=== PATIENT | female | born 1955 | race Caucasian/White ===

== ENCOUNTER → 2023-03-25 | Outpatient (CLI) | payer MEDICARE ==
--- NOTE | 2023-03-25 12:26 | CA ---
Transthoracic Echo Report Name: Muriel Roberts Age: 68 Gender: F : 1955 Exam Date: 03/25/2023 11:37 Exam Location: [facility] Ht (in): 61 Wt (lb): 190 Ordering Physician: Kwaku Colunga DO Attending/Referring Phys: Shanice Gooden PENDING SALE TO [facility] Video Journalist Jamee Portillo RDCS Procedure CPT: Indications: R00.1 bradycardia Cardiac Hx: Technical Quality: Contrast 1: Total Dose (mL): Contrast 2: Total Dose (mL): MEASUREMENTS (Male / Female) Normal Values 2D ECHO LV Diastolic Diameter PLAX 4.4 cm 4.2 - 5.9 / 3.9 - 5.3 cm LV Systolic Diameter PLAX 3.0 cm IVS Diastolic Thickness 1.1 cm 0.6 - 1.0 / 0.6 - 0.9 cm LVPW Diastolic Thickness 1.1 cm 0.6 - 1.0 / 0.6 - 0.9 cm LV Relative Wall Thickness 0.5 RV Internal Dim ED PLAX 3.2 cm LA Systolic Diameter LX 3.4 cm 3.0 - 4.0 / 2.7 - 3.8 cm LV Diastolic Volume MOD 4C 88.1 cm??? LV Systolic Volume MOD 4C 41.6 cm??? LV Ejection Fraction MOD 4C 52.8 % LV Cardiac Index MOD 4C 1441.5 cm???/min???m??? LV Diastolic Length 4C 7.8 cm LV Systolic Length 4C 6.0 cm LV Diastolic Volume MOD 2C 77.3 cm??? LV Systolic Volume MOD 2C 27.6 cm??? LV Ejection Fraction MOD 2C 64.4 % LV Cardiac Index MOD 2C 1542.0 cm???/min???m??? LV Diastolic Length 2C 7.5 cm LV Systolic Length 2C 6.0 cm M-MODE Aortic Root Diameter MM 3.5 cm LA Systolic Diameter MM 3.5 cm LA Ao Ratio MM 1.0 DOPPLER AV Peak Velocity 129.3 cm/s AV Peak Gradient 6.7 mmHg Mitral E Point Velocity 67.0 cm/s Mitral A Point Velocity 91.2 cm/s Mitral E to A Ratio 0.7 MV Deceleration Time 254.6 ms MV E' Velocity 5.6 cm/s Mitral E to MV E' Ratio 11.9 TR Peak Velocity 198.3 cm/s TR Peak Gradient 15.7 mmHg Right Ventricular Systolic Press 25.7 mmHg FINDINGS Left Ventricle Left ventricular ejection fraction is estimated at 55-60 %. Left ventricular cavity size normal. Mildly increased septal wall thickness. Mildly increased posterior wall thickness. Right Ventricle Normal right ventricular size. Right ventricular systolic pressure within normal limits. Right Atrium Normal right atrial size. Left Atrium Normal left atrial size. Mitral Valve Structurally normal mitral valve. No mitral stenosis, regurgitation or prolapse. Aortic Valve Trileaflet aortic valve. No aortic valve stenosis or regurgitation. Tricuspid Valve Structurally normal tricuspid valve. Trace to mild tricuspid regurgitation. Pulmonic Valve Pulmonic valve not well visualized. No pulmonic regurgitation. Pericardium No pericardial effusion. Aorta Normal size aortic root and proximal ascending aorta. CONCLUSIONS Normal LV function Previewed by: Dr. Mamadou Saravia MD (Electronically Signed) Final Date: 25 March 2023 12:25
== END | disposition home or self-care (01) ==
LOC: RADECHMAIN 11:25
PROVIDERS: ATTEND Family Medicine
DX: R00.1 Bradycardia, unspecified (principal)
CPT/HCPCS: 93306

== ENCOUNTER → 2023-03-26 | Outpatient (CLI) | payer MEDICARE ==
[2023-03-26 09:48] VITALS: BP 134/86; PULSE 86; RESP 15; TEMP 98.6
--- NOTE | 2023-03-26 12:59 | P.PAINPG ---
PQRS Measure Charge Sheet Comment: HISTORY OF PRESENT ILLNESS: A 68 yr old female w at side as a referral from Shanice RODRIGUEZ presents today w severe and chronic LBP secondary to DDD, spondylosis and facet arthropathy without myelopathy for evaluation. Pt states she underwent a BL RFA of the L4-L5, L5-S1 in Sep 2021 where she experienced 100% pain relief for 14 mo s/p procedure. Pt states pain level is provoked at 8/10 in intensity, constant, localized in the center lumbar spine, predominantly axial, stabbing in character w occasional shooting pain towards the BL hips, groin and LEs. Pain is provoked by standing for periods > 10 min. 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 Pain is alleviated by injections, physician guided home exercises daily since Sep 2021, medications, topical, repositioning and rest. Oswestry axial pain score at 16. PMH: OA, GERD, HTN, Hyperlipidemia PSH: BL Knee Replacement, BL CTR, Uterine Polypectomy SH: Hx of tobacco use (Quit 1975), No ETOH abuse, No illicit drug use. and has children. Lives w Spouse. Retired. FH: Bro- DM. Bro- Brain Tumor. Mo- MT. Fa- AAA. All: See list Meds: See list REVIEW OF ORGAN SYSTEMS: CONSTITUTIONAL: No fevers or chills. No recent weight loss. NEUROLOGICAL: + numbness and tingling along the distal extremities. No seizure disorders or headaches. MUSCULOSKELETAL: + pain PSYCHIATRIC: Denies current depression or suicidal thoughts. Physical Examinations : Constitutional : Cooperative , not in acute distress . Neurologic : Cranial nerve II to XII intact. No focal neurological deficits. Psychiatric : alert & oriented x 3. Matching mood & appropriate affect. Judgment & insight intact. Musculoskeletal : Cervical Spine Motor strength in the deltoid and biceps: Normal right side. Normal Left side Motor strength biceps and the wrist extensors: Normal right side . Normal left side Motor strength in the triceps muscle: Normal right side. Normal left side Deep tendon reflexes: Normal at the biceps. Normal at Brachioradialis. Normal at triceps Vertebral body tenderness to deep palpation over Cervical facet loading test: positive bilaterally Spurling test: positive bilaterally Neck distraction test: positive bilaterally Nathanael sign: positive bilaterally Lumbar spine Motor strength lower extremities ,thigh and legs 5/5 Right side , 5/5 Left side Deep tendon reflexes : Normal Knee Jerk. Normal Ankle Jerk Vertebral body tenderness over Kahn Test positive Lumbar facet Loading Test: positive Right / positive Left over L4-L5, L5-S1 Range of motion of the lumbar spine Flexion 30 degrees, extension 10 degrees Straight Leg Raise test: Left/ Right positive at degrees Néstor test: positive right / positive left. Severe tenderness over the Sacroiliac joint on the Right / Left sides Gaenslen test: positive bilaterally Seated flexion test: positive bilaterally. Sacral spine : Severe tenderness over the Sacroiliac joint: right side / left side Range of motion: Flexion of the lumbar spine <60 degrees Range of motion: Extension of the lumbar spine <20 degrees Gaenslen's Test positive Néstor test: positive right side / left side Thigh Thrust Test Sacral Thrust Test Imaging: Obtaining records from Dr Nadeem Butler in [place], [place] Assessment/ Plan : Lumbar DDD Recommendation of repeat BL RFA L4-L5, L5-S1. Pt exhibited optimal pain relief w prior BL RFA of the lumbar spine from Sep 2021. Risks, benefits of procedure discussed and patient verbalized understanding. Admits to anti- coagulant use or medical history of diabetes. Protocol for discontinuation/ continuation of medications simone procedure discussed. Minimal anesthesia provided, if clinically indicated, consisting of Versed and Fentanyl. All questions answered. I have spent greater than 30 minutes on patient care today. Dr Kruger was available by phone for the evaluation of this patient. The time was used to review the medical records including relevant urine studies and Prescription history (MAPs), review of the available imaging, evaluation and examination of the patient, coordination of care with the medical staff and if applicable referring physicians, as well as creation of the medical record Controlled Substance Measures - Controlled Substance Measures Is patient prescribed a controlled substance at discharge?: No
== END ==
LOC: PNWHC3 08:58
PROVIDERS: ATTEND Specialist
DX: M51.37 Other intervertebral disc degeneration, lumbosacral region (principal); M19.90 Unspecified osteoarthritis, unspecified site; K21.9 Gastro-esophageal reflux disease without esophagitis; I10 Essential (primary) hypertension; E78.5 Hyperlipidemia, unspecified; Z87.891 Personal history of nicotine dependence; Z88.0 Allergy status to penicillin; Z88.5 Allergy status to narcotic agent
CPT/HCPCS: 99212

== ENCOUNTER → 2023-04-08 | Outpatient (CLI) | payer MEDICARE ==
--- NOTE | 2023-04-08 12:39 | CA ---
Exercise Stress Test Report Name: Muriel Roberts Exam Date: 04/08/2023 08:19 Exam Location: [facility] Ht (in): 61 Wt (lb): 190 BSA: 1.85 Ordering Phys: Kwaku Colunga DO Referring Phys: Shanice Gooden Technologist: Ed Fisher Age: 68 Gender: F : 1955 Procedure CPT: Indications: R00.2 palpitations ICD-10 Codes: Patient History: Medications: THYROXINE, CLARITIN, FLONASE Meds past 24 hrs: Pretest Chest Pain: STRESS TEST Hank Protocol Exercise Duration (min:sec): 09:[address] Depressions (mm): Angina Score: Vasquez Score: Resting HR (bpm): 90 Peak HR (bpm): 152 Resting BP (mmHg): 131 / 82 Peak BP (mmHg): 184 / 82 MPHR: 151 Target HR: 128 % MPHR: 101 METS: 10.3 Total Dose: Peak Dose: Atropine: Double Product: 38246 BP Response: Stress Termination: Reached target heart rate Stress Symptoms: No chest pain or symptoms Stress Summary: ECG ANALYSIS Resting ECG: Stress ECG: CONCLUSIONS Good exercise tolerance Normal EKG in response to exercise Dr. Charly Diaz MD (Electronically Signed) Final Date: 08 April 2023 12:39
== END | disposition home or self-care (01) ==
LOC: RADECHMAIN 07:43
PROVIDERS: ATTEND Family Medicine
DX: R00.2 Palpitations (principal); R00.1 Bradycardia, unspecified
CPT/HCPCS: 93017; 93270

== ENCOUNTER 2023-06-03 18:50 | Outpatient (CLI) | payer MEDICARE ==
--- NOTE | 2023-06-05 13:51 | P.PCN ---
Description of Procedure: POLYSOMNOGRAPHY REPORT PROCEDURE(S)/DATE(S): Polysomnography 06/03/2023 CLINICAL: Patient has been seen in the sleep center for evaluation of obstructive sleep apnea-hypopnea syndrome. Please see my consultation. Sleep study has been done for evaluation of patient breathing during the sleep. PROCEDURE: The standard montage for clinical polysomnography included the electroencephalogram, the electrooculogram, the mentalis surface electromyography and Lead II cardiography. The respiratory battery consisted of measurements of nasal/buccal air flow, pressure transducer measurements from nose, thoracic and/or abdominal effort and intercostal surface electromyography. Video monitoring has been done to check for any parasomnia events. Nocturnal oxyhemoglobin saturations were obtained by finger oximetry. Step-jonas titration with positive airway pressure was utilized to control the respiratory events, if necessary. RESULTS: During the diagnostic sleep study sleep efficiency was decreased to 79.8%. Latency to sleep onset was prolonged to 31.0 min. Sleep architecture showed stage NI increased to 18.4%, Delta sleep was absent 0%, REM sleep was decreased to 12.7%. Respiratory channel showed 0 obstructive apneas, 0 mixed apneas, 0 central apneas, 2 hypopneas with lowest oxygen level 85%. Total atrial oxygen was below or 89% for 1 minute and 36 seconds. total apnea hypopnea index was 0.4. Heart rate was in the range between 64 and 75, average 70. EMG showed 12.1 periodic limb movements per hour with 0 micro-arousals per hour. IMPRESSIONS: 1. No significant respiratory abnormalities have been documented during the sleep study . 2. Very minimal periodic limb movements have been documented without related microarousals. Please see other impressions from consultation PLAN: 1. I will see patient for follow-up visit to explain results of the sleep study and recommendations. 2. Losing weight program. 3. Sleep hygiene with regular time in bed for at least 7-1/2 hours. 4. No driving if feeling sleepiness. 5. Please check iron profile including ferritin level. Low level of iron may increase the risk for periodic limb movements. Thank you very much for allowing me to participate in the management of your patient. Sincerely, Miguel Ng MD, PhD, FAASM. Diplomat of [place] [employer], Sleep Medicine Board by [place] [employer] [facility] [place]
== END 2023-06-04 05:05 | disposition home or self-care (01) ==
LOC: 3 N SLEEP 18:50
PROVIDERS: ATTEND Internal Medicine
DX: G47.33 Obstructive sleep apnea (adult) (pediatric) (principal); G47.61 Periodic limb movement disorder; Z88.0 Allergy status to penicillin; Z88.5 Allergy status to narcotic agent
CPT/HCPCS: 95810

== ENCOUNTER → 2023-06-26 | Outpatient (CLI) | payer MEDICARE ==
[2023-06-26 13:53] VITALS: BP 118/78; PULSE 70; RESP 16; TEMP 98.3
--- NOTE | 2023-06-26 14:15 | P.PN ---
Subjective DATE: 06/26/2023 FOLLOW UP VISIT. Patient returned to sleep center for follow-up visit discussed results of sleep test and following plan. I discussed results of sleep study with patient in details. No significant respiratory abnormalities have been documented. Very mild periodic limb movements have been documented without any microarousal's. Patient had prolonged sleep latency and some decreasing of sleep efficiency, but patient did not feel comfortable with electrodes and had some pain in his body during the test. . Imperial sleepiness scale is 7, which is in normal range. MEDICATIONS:1. Levothyroxine 150 mcg once a day 2. Omeprazole 20 mg once a day 3. Rosuvastatin 5 mg once a day 4. Trazodone 150 mg once a day During physical exam: GENERAL: A pleasant patient without any distress. VITAL SIGNS: Please see below. HEENT: [place]. NECK: Supple. No JVD. LUNGS: Clear to percussion and to auscultation. Good air exchange. No wheezing or rhonchi. HEART: S1, S2 regular. ABDOMEN: Soft and nontender. EXTREMITIES: No clubbing or cyanosis. TUTORING ASSISTANT: Awake, alert, and oriented x3. No focal deficit. Impressions: 1. No significant respiratory abnormalities given documented during the sleep study 2. Very mild periodic limb movements have been documented, normal range by 2 days criteria without any significant amount of micro arousals. 3. History of arthritis. 4. Hypothyroidism. 5. Acid reflux. 6. Hyperlipidemia. 7. Status post bilateral knee replacement. Plan: 1. Sleep hygiene with regular time in bed for at least 8 hours. 2. Precautions related to driving. No driving if feel any sleepiness. Patient is aware about civil and criminal liability for unsafe driving, promised to follow recommendations. 3. Follow up visit in 1 year if patient has any problems. Thank you very much for allowing me to participate in the management of your patient. Miguel Ng MD, PhD, FAASM. Diplomat of [place] [employer], Sleep Medicine Board by [place] [employer] Instructor of [facility] [place] Objective - Vital Signs Vital signs: Vital Signs Temp 98.3 F 06/26/23 13:50 Pulse 70 06/26/23 13:50 Resp 16 06/26/23 13:50 BP 118/78 06/26/23 13:50 Pulse Ox 97 06/26/23 13:50 FiO2
== END ==
LOC: 3 N SLEEP 13:33
PROVIDERS: ATTEND Internal Medicine
DX: G47.61 Periodic limb movement disorder (principal); M19.90 Unspecified osteoarthritis, unspecified site; E03.9 Hypothyroidism, unspecified; E78.5 Hyperlipidemia, unspecified; K21.9 Gastro-esophageal reflux disease without esophagitis; Z79.890 Hormone replacement therapy; Z79.899 Other long term (current) drug therapy; Z96.653 Presence of artificial knee joint, bilateral; Z88.0 Allergy status to penicillin; Z88.8 Allergy status to other drugs, medicaments and biological substances
CPT/HCPCS: 99212

== ENCOUNTER → 2023-07-15 | Outpatient (CLI) | payer MEDICARE ==
--- NOTE | 2023-07-17 08:51 | MM ---
Reason for Exam: Screening (asymptomatic). Last screening mammogram was performed 12 month(s) ago. Patient History: Menarche at age 10. First Full-Term at age 21. Postmenopausal. Mother had breast cancer. Risk Values: Farrah 5 year model risk: 3.6%. NCI Lifetime model risk: 10.9%. Prior Study Comparison: 10/10/2020 Bilateral Screening Mammogram, [facility]. 06/05/2021 Bilateral Diagnostic Mammogram, [facility]. 06/29/2022 Bilateral Screening Mammogram, [facility]. Tissue Density: There are scattered areas of fibroglandular density. Findings: Analyzed By CAD. Right breast: There is no suspicious group of microcalcifications or new suspicious mass. Left breast: There is no suspicious group of microcalcifications or new suspicious mass. Overall Assessment: Negative, BI-RAD 1 Management: Screening Mammogram of both breasts in [address] [facility] will attempt to contact patient to return for supplemental views and ultrasound if indicated. Patient should continue monthly self-breast exams. A clinical breast exam by your physician is recommended on an annual basis. This exam should not preclude additional follow-up of suspicious palpable abnormalities. Note on Farrah scores and lifetime risk: 1. A Farrah score greater than 3% is considered moderate risk. If this is the case, consider specialist referral to assess eligibility for a risk reducing agent. 2. If overall lifetime risk for the development of breast cancer is 20% or higher, the patient may qualify for future screening with alternating mammogram and breast MRI. Electronically signed and approved by: Rivera Pemberton DO
== END | disposition home or self-care (01) ==
LOC: RADMAMWWP 10:50
PROVIDERS: ATTEND Family Medicine
DX: Z12.31 Encounter for screening mammogram for malignant neoplasm of breast (principal); Z78.0 Asymptomatic menopausal state; Z80.3 Family history of malignant neoplasm of breast
CPT/HCPCS: 77063; 77067

== ENCOUNTER → 2024-03-26 | Outpatient (CLI) | payer MEDICARE ==
[2024-03-26 09:25] LABS: Blood Urea Nitrogen 14 mg/dL (7-17)
[2024-03-26 09:26] LABS: African American GFR (CKD) 87 (>60 ml/min/1.73 sqM); Non-African American GFR(CKD) 75 (>60 ml/min/1.73 sqM)
--- NOTE | 2024-03-26 11:08 | CT ---
EXAMINATION TYPE: CT abdomen pelvis w con DATE OF EXAM: 03/26/2024 HISTORY: RLQ pain, nausea CT DLP: 1719.7mGycm Automated Exposure Control for Dose Reduction was Utilized. CONTRAST: CT scan of the abdomen and pelvis is performed with oral and with IV Contrast, patient injected with 100 mL of Isovue 300. COMPARISON: None FINDINGS: LUNG BASES: No significant abnormality is appreciated. LIVER/GB: No significant abnormality is appreciated. PANCREAS: No significant abnormality is seen. SPLEEN: No significant abnormality is seen. ADRENALS: No significant abnormality is seen. KIDNEYS: Symmetric cortical medullary uptake and excretion with prominent but simple appearing parape lvic cyst centrally in both kidneys. BOWEL: Oral contrast extends to level of the mid transverse colon. There is no abnormal small or larg e bowel dilatation is seen. A few scattered colonic diverticula are present. No CT evidence for acute diverticulitis. There is wondering cecum into the anterior right midabdomen. Terminal ileum appears within normal limits axial image 47 . Appendix is suspected surgically absent as no normal or abnorma l appendix is identified. No inflammatory change at base of cecum is seen. Focal wall thickening in t he right colon image 43 is nonspecific finding and should be correlated with colonoscopy if has not b een recently performed to rule out malignancy. UTERUS/ADNEXA: Symmetric small size ovaries correlates with patient's postmenopausal age. LYMPH NODES: No greater than 1cm abdominal or pelvic lymph nodes are appreciated. OSSEOUS STRUCTURES: Slight grade 1 anterolisthesis L4 on L5. Multilevel spurring and disc space narro wing in the thoracic spine. OTHER: No significant additional abnormality is seen. IMPRESSION: No significant finding is seen to account for patient's clinical symptoms of right lower quadrant pain and nausea. No bowel obstruction or CT evidence to suggest acute appendicitis. [facility], , 03/26/2024 11:06 AM
== END | disposition home or self-care (01) ==
LOC: RADCTMAIN 08:35
PROVIDERS: ATTEND Family Medicine
DX: R10.823 Right lower quadrant rebound abdominal tenderness (principal)
CPT/HCPCS: 82565; 84520; 74177; 36415; Q9967

== ENCOUNTER 2024-06-12 09:58 | Day surgery (SDC) | payer MEDICARE ==
[2024-06-10 15:39] VITALS: BMI 38.7
[2024-06-12] MEDS: IV FLUID CONTINUATION 1,000 ML IV ONE (10:22)
[2024-06-12 10:29] VITALS: TEMP 98.3
[2024-06-12] MEDS: LACTATED RINGERS 1,000 ML IV SCH (10:37)
[2024-06-12] MEDS ORDERED: PROPOFOL 10 MG/ML 20 ML VIAL IV ONE (11:01)
[2024-06-12] MEDS ORDERED: LIDOCAINE 1% INJ 10MG/ML (20 ML MDV) ONE (11:01)
--- NOTE | 2024-06-12 11:16 | P.PCN ---
Date of Procedure: 06/12/24 Procedure(s) Performed: BRIEF HISTORY: Patient is a 69-year-old pleasant white female scheduled for an elective colonoscopy as a part of evaluation for abnormal CAT scan of the abdomen that showed thickening of the cecum rule out lesion. PROCEDURE PERFORMED: Colonoscopy with snare polypectomy. PREOPERATIVE DIAGNOSIS: Abnormal CAT scan of the abdomen. IV sedation per Anesthesia. PROCEDURE: After informed consent was obtained, the patient, was brought into the endoscopy unit. IV sedation was administered by Anesthesia under continuous monitoring. Digital rectal examination was normal. Initially the Olympus CF-160 flexible video colonoscope was then inserted in the rectum, gradually advanced into the cecum without any difficulty. Careful examination was performed as the scope was gradually being withdrawn. Ileocecal valve and the appendiceal orifice were visualized and appeared normal. Prep was excellent. Mucosa of the cecum appeared normal. In the hepatic flexure there was a 5 mm sessile polyp removed by cold snare polypectomy. Rest of the, ascending colon, transverse colon, descending colon, sigmoid colon, and rectum appeared normal. Scattered sigmoid diverticulosis. Retroflexion was performed in the rectum and no lesions were seen. The patient tolerated the procedure well. IMPRESSION: 5 mm hepatic flexure polyp status post cold snare polypectomy Scattered sigmoid diverticulosis Cecum appeared normal RECOMMENDATIONS: Findings of this examination were discussed with the patient as well as her family. She was advised to follow-up with the biopsy results. If the biopsy is normal she can have repeat colonoscopy 5 years..
[2024-06-12 11:43] VITALS: BP 131/76; PULSE 60; RESP 16
== END 2024-06-12 12:06 | disposition home or self-care (01) ==
LOC: ORWHC2ENDO 09:58
PROVIDERS: ATTEND Internal Medicine Gastroenterology
DX: D12.3 Benign neoplasm of transverse colon (principal); K57.30 Diverticulosis of large intestine without perforation or abscess without bleeding; E03.9 Hypothyroidism, unspecified; K21.9 Gastro-esophageal reflux disease without esophagitis; M06.9 Rheumatoid arthritis, unspecified; J40 Bronchitis, not specified as acute or chronic; Z88.5 Allergy status to narcotic agent; Z88.0 Allergy status to penicillin; Z88.8 Allergy status to other drugs, medicaments and biological substances; Z79.890 Hormone replacement therapy; Z79.899 Other long term (current) drug therapy; Z88.6 Allergy status to analgesic agent
CPT/HCPCS: 45385; J2003; J2704; 88305

== ENCOUNTER → 2024-07-20 | Outpatient (CLI) | payer MEDICARE ==
--- NOTE | 2024-07-20 11:51 | MM ---
Reason for Exam: Screening (asymptomatic). Last mammogram was performed 1 year(s) and 1 month(s) ago. Patient History: Menarche at age 10. First Full-Term at age 21. Postmenopausal. Patient has history of breast feeding. Patient used Hormonal Contraceptives for 1 year. Mother had breast cancer. Risk Values: Farrah 5 year model risk: 3.6%. NCI Lifetime model risk: 10.4%. Prior Study Comparison: 06/05/2021 Bilateral Diagnostic Mammogram, [facility]. 06/29/2022 Bilateral Screening Mammogram, [facility]. 07/15/2023 Bilateral MG 3D screening mammo w/cad, [facility]. Tissue Density: The breasts are heterogeneously dense, which may obscure small masses. Findings: Analyzed By CAD. Right breast: There is no suspicious group of microcalcifications or new suspicious mass. Left breast: There is no suspicious group of microcalcifications or new suspicious mass. Overall Assessment: Negative, BI-RAD 1 Management: Screening Mammogram of both breasts in [address] [facility] will attempt to contact patient to return for supplemental views and ultrasound if indicated. Patient should continue monthly self-breast exams. A clinical breast exam by your physician is recommended on an annual basis. This exam should not preclude additional follow-up of suspicious palpable abnormalities. Note on Farrah scores and lifetime risk: 1. A Farrah score greater than 3% is considered moderate risk. If this is the case, consider specialist referral to assess eligibility for a risk reducing agent. 2. If overall lifetime risk for the development of breast cancer is 20% or higher, the patient may qualify for future screening with alternating mammogram and breast MRI. [facility], , 07/20/2024 11:48 AM. Electronically signed and approved by: Rivera Pemberton DO
== END | disposition home or self-care (01) ==
LOC: RADMAMWWP 11:04
PROVIDERS: ATTEND Family Medicine
DX: Z12.31 Encounter for screening mammogram for malignant neoplasm of breast (principal); R92.333 Mammographic heterogeneous density, bilateral breasts; Z92.0 Personal history of contraception; Z80.3 Family history of malignant neoplasm of breast; Z78.0 Asymptomatic menopausal state
CPT/HCPCS: 77063; 77067

== ENCOUNTER → 2024-08-28 | Outpatient (CLI) | payer MEDICARE ==
[2024-08-28 14:23] VITALS: BP 125/86; PULSE 71; RESP 17; TEMP 97.9
--- NOTE | 2024-08-28 14:35 | P.GSCN ---
History of Present Illness Consult date: 08/28/24 Reason for Consult: High risk breast cancer Requesting physician: Kwaku Colunga History of present illness: Muriel is a 69-year-old female seen in consultation for Dr. Colunga regarding an elevated Farrah 5-year risk to 3.6%. She underwent a bilateral mammogram in 07 20 24 which was personally reviewed and interpreted and was noted to be a BI-RADS 1. She is not complaining of any lumps masses or nodules of concern in either breast. She is not complaining of any nipple discharge or skin changes. She is not complaining of any recent trauma or infection in the breast. She has never had any surgery on her breast. Farrah risk evaluation 5-year: 3.6% Lifetime risk 10.4% Caffeine: 1 cup coffee/day nicotine: none, stopped in 1975, used to smoke 2-3 cigarettes/day chocolate: several times a week BCP: Less than 1 year in remote past Hormones: none Family History: mother: breast cancer about 70, of heart attack 4 years later brother: melanoma brain cancer brother: stomach cancer Hormonal History: menarche: 11 , breast fed: yes, age at first : 21 menopause: 51 Surgical history: Bilateral knee replacement Bilateral carpal tunnel surgery Uterine surgery to remove polyp rectal polys removed no cancer Medical history: High cholesterol Radioiodine to ablate thyroid and she takes Synthroid at this time Social history: Nicotine: Negative Alcohol: Occasional Drugs: Negative Review of Systems - Constitutional Denies fever, Denies weight loss - EENT Eyes: denies blurred vision Ears: deny: decreased hearing, tinnitus Ears, nose, mouth and throat: Denies dysphagia - Breasts bilateral: as per HPI - Cardiovascular Denies chest pain, Denies shortness of breath - Respiratory Reports cough - Gastrointestinal Reports as per HPI, Reports constipation - Genitourinary Genitourinary: Denies dysuria, Denies hematuria Menstruation: Reports postmenopausal - Musculoskeletal Musculoskeleta Comment(s): arthritis - Integumentary Denies rash, Denies unusual bruising - Neurological Denies headaches, Denies syncope - Psychiatric Reports as per HPI - Endocrine Endocrine Comment(s): hypothyroid Reports as per HPI, Reports fatigue - Hematologic/Lymphatic Reports easy bleeding - Allergic/Immunologic Reports as per HPI, Reports seasonal allergies Past Medical History Past Medical History: GERD/Reflux, Hyperlipidemia, Osteoarthritis (OA), Respiratory Disorder, Rheumatoid Arthritis (RA), Thyroid Disorder Additional Past Medical History / Comment(s): Hx one instance of Tachycardia. Hx bronchitis multiple times. History of Any Multi-Drug Resistant Organisms: None Reported Past Surgical History: Joint Replacement, Orthopedic Surgery Additional Past Surgical History / Comment(s): Carpal tunnel surgery, bilateral knee replacements, polyp removd from uterus, colonoscopy. Past Anesthesia/Blood Transfusion Reactions: No Reported Reaction, Motion Sickness Smoking Status: Former smoker - Past Family History Mother Family Medical History: Congestive Heart Failure (CHF), GERD/Reflux, Hypertension, Rheumatoid Arthritis (RA) Medications and Allergies Home Medications Medication Instructions Recorded Confirmed Type Desloratadine [Clarinex] 10 mg PO DAILY 06/10/24 06/12/24 History Fluticasone Nasal [place] [Flonase 1 spray EA NOSTRIL DAILY 06/10/24 06/12/24 History Nasal [place]] Ibuprofen [Advil] 800 mg PO Q8HR PRN 06/10/24 06/12/24 History Levothyroxine Sodium 75 mcg PO [id number] 06/10/24 06/12/24 History Levothyroxine Sodium 150 mcg PO SUTUTH 06/10/24 06/12/24 History Multivitamins, Thera [Multivitamin 1 tab PO DAILY 06/10/24 06/12/24 History (formulary)] [place] 3,6,9 1 tab PO DAILY 06/10/24 06/12/24 History Pantoprazole Sodium [Protonix] 20 mg PO DAILY 06/10/24 06/12/24 History Rosuvastatin Calcium 5 mg PO DAILY 06/10/24 06/12/24 History Ubidecarenone [Co Q-10] 100 mg PO DAILY 06/10/24 06/12/24 History Vitamin B Complex 1 each PO DAILY 06/10/24 06/12/24 History traZODone HCL [Trazodone HCl] 150 mg PO HS PRN 06/10/24 06/12/24 History Allergies Allergy/AdvReac Type Severity Reaction Status Date / Time amoxicillin Allergy Swelling Verified 06/12/24 10:29 celecoxib [From Celebrex] Allergy Vomiting Verified 06/12/24 10:29 Opioids - Morphine Analogues Allergy Nausea & Verified 06/12/24 10:29 Vomiting Opioids-Meperidine and Allergy Nausea & Verified 06/12/24 10:29 Related Vomiting Opioids-Methadone and Related Allergy Nausea & Verified 06/12/24 10:29 Vomiting Surgical - Exam - General no distress - Eyes normal ocular movement - ENT no hearing loss - Neck trachea midline - Respiratory normal respiratory effort - Cardiovascular Rhythm: regular Heart Sounds: normal: S1, S2 - Abdomen Abdomen: soft, non tender, no guarding, no rigid, no rebound - Integumentary normal turgor - Neurologic no disoriented, no combative - Musculoskeletal normal gait - Psychiatric oriented to time, oriented to person, oriented to place, speech is normal, memory intact Breast Exam: BRA: 38C Inspection: Bilateral grade 2 ptosis Palpation: Right breast: Multi positional exam fibrocystic changes, no dominant masses or nodules of concern Right axilla: No adenopathy of concern Left breast: Multi positional exam fibrocystic changes no dominant masses or nodules of concern Left axilla: No adenopathy of concern Results Bilateral mammogram 5 5 25 BI-RADS 1 this was personally reviewed and interpreted Assessment and Plan Assessment: Impression: Increased risk for breast cancer/Farrah risk 3.6% at 5 years Plan: Bilateral breast ultrasound secondary to the fact that the patient has dense breast, she is going to check to assure that her insurance will cover this Follow-up after bilateral breast ultrasound Bilateral mammogram 1 year with physician exam at that time Follow-up sooner any questions or concerns CC: Dr. Colunga
== END ==
LOC: WWCWWP 13:41
PROVIDERS: ATTEND Surgery
DX: D05.00 Lobular carcinoma in situ of unspecified breast (principal); Z88.5 Allergy status to narcotic agent; Z88.6 Allergy status to analgesic agent; Z88.0 Allergy status to penicillin; Z87.891 Personal history of nicotine dependence

== ENCOUNTER → 2024-09-16 | Outpatient (CLI) | payer MEDICARE ==
[2024-09-16 10:27] LABS: Basophils # (A) 0.05 X 10*3/uL (0.00-0.10); Basophils % (A) 0.8 %; Eosinophils # (A) 0.26 X 10*3/uL (0.04-0.35); Eosinophils % (A) 4.4 %; HCT 40.1 % (37.2-46.3); HGB 13.1 g/dL (12.0-15.0); Immature Grans, Automated 0.20 %; Lymphocytes # (A) 2.58 X 10*3/uL (0.90-5.00); Lymphocytes % (A) 43.7 %; MCH 30.7 pg (27.0-32.0); MCHC 32.7 g/dL (32.0-37.0); MCV 93.9 FL (80.0-97.0); Monocytes # (A) 0.55 X 10*3/uL (0.20-1.00); Monocytes % (A) 9.3 %; NRBC Per 100 WBC 0 X 10*3/uL (0.00-0.01); Neutrophils # (A) 2.46 X 10*3/uL (1.80-7.70); Neutrophils % (A) 41.6 %; Platelet Count 215 X 10*3/uL (140-440); RBC 4.27 X 10*6/uL (4.10-5.20); RDW 12.6 % (11.5-14.5); WBC 5.91 X 10*3/uL (4.50-10.00)
[2024-09-16 11:04] LABS: ALT 30 U/L (8-44); AST 32 U/L (13-35); Albumin 4.0 g/dL (3.8-4.9); Albumin/Globulin Ratio 2.00 Ratio (1.60-3.17); Alkaline Phosphatase 87 U/L (41-126); Anion Gap 11.30 mmol/L (4.00-12.00); BUN/Creat Ratio 21.43 Ratio (12.00-20.00); Bilirubin,Unconjugated 0.29 mg/dL (0.20-1.00); Blood Urea Nitrogen 15.0 mg/dL (9.0-27.0); Calcium 8.8 mg/dL (8.7-10.3); Carbon Dioxide 22.7 mmol/L (21.6-31.8); Chloride 109 mmol/L (96-109); Cholesterol 179.00 mg/dL (0.00-200.00); Globulin 2.0 g/dL (1.6-3.3); Glucose 93 mg/dL (70-110); HDL Cholesterol 58.30 mg/dL (40.00-60.00); Iron 67 UG/DL (50-170); LDL Cholesterol,Calculated 93.1 mg/dL (0.0-131.0); Potassium 4.0 mmol/L (3.5-5.5); Sodium 143 mmol/L (135-145); T4, Free (Free Thyroxine) 1.33 ng/dL (0.80-1.80); Total Protein 6.0 g/dL (6.2-8.2); Triglycerides 138.00 mg/dL (0.00-149.00); VLDL Calculation 27.60 mg/dL (5.00-40.00); Vitamin B12 986.0 pg/mL (200.0-944.0)
== END | disposition home or self-care (01) ==
LOC: LABWHC1 07:29
PROVIDERS: ATTEND Nurse Practitioner Family
DX: E03.9 Hypothyroidism, unspecified (principal); E78.5 Hyperlipidemia, unspecified; R53.83 Other fatigue
CPT/HCPCS: 36415; 80048; 80061; 80076; 82607; 83540; 84439; 84443; 84481; 85025